=== PATIENT | male | born 1975 | race Caucasian/White ===

== ENCOUNTER → 2016-07-20 | Outpatient (CLI) | payer BC ==
[~2016-07-20] MED LIST: NAPROSYN500 MG PO; NORFLEX100 MG PO; TRAMADOL HCL50 MG PO
== END | disposition home or self-care (01) ==
LOC: US 15:00
DX: N50.3 Cyst of epididymis (principal); N43.3 Hydrocele, unspecified

== ENCOUNTER 2016-11-08 07:53 | Emergency (ER) | payer BC ==
[~2016-11-08] VITALS: Wt 70.3 kg
== END 2016-11-08 10:14 | disposition home or self-care (01) ==
LOC: ED 07:53
DX: M54.6 Pain in thoracic spine (principal); F17.200 Nicotine dependence, unspecified, uncomplicated

== ENCOUNTER 2022-05-17 19:08 | Emergency (ER) | payer BC, OTHER ==
[~2022-05-17] VITALS: Ht 182.8 cm; Wt 77.6 kg
[2022-05-17] MEDS ORDERED: PREDNISONE50 MG PO (20:04)
== END 2022-05-17 20:13 | disposition home or self-care (01) ==
LOC: ED 19:08
DX: R21 Rash and other nonspecific skin eruption (principal)

== ENCOUNTER 2023-02-19 19:11 | Emergency (ER) | payer BC, OTHER ==
[~2023-02-19] VITALS: Ht 182.8 cm; Wt 73.5 kg
[~2023-02-19 19:11] MED LIST changes: +PREDNISONE50 MG PO
[2023-02-19] MEDS ORDERED: FAMOTIDINE20 M1 PO (19:40)
[2023-02-19] MEDS ORDERED: FEXOFENADINE H180 M1 PO (19:41)
[2023-02-19] MEDS ORDERED: MEDROL DOSEPAK4 MG PO (21:27)
== END 2023-02-19 21:57 | disposition home or self-care (01) ==
LOC: ED 19:11
DX: T63.441A Toxic effect of venom of bees, accidental (unintentional), initial encounter (principal); L53.0 Toxic erythema; Z79.899 Other long term (current) drug therapy; Z98.890 Other specified postprocedural states; Y92.89 Other specified places as the place of occurrence of the external cause

== ENCOUNTER 2024-06-29 17:19 | Emergency (ER) | payer BC ==
[~2024-06-29] VITALS: Ht 193 cm; Wt 81.6 kg
[~2024-06-29 17:19] MED LIST changes: +FAMOTIDINE20 M1 PO; +FEXOFENADINE H180 M1 PO; +MEDROL DOSEPAK4 MG PO
[2024-06-29] MEDS ORDERED: SODIUM CHLORIDE 0.9% 1,000 ML IV ONE (18:00)
[2024-06-29] MEDS ORDERED: Pantoprazole Sodium 40 MG VIAL IV ONE (18:00)
[2024-06-29 18:21] LABS: HEMATOCRIT 47.4 % (42.0-52.0); MEAN CELL VOLUME 95.2 fl (80.0-94.0); MEAN CORPUSCULAR HGB 31.3 pg (27.0-31.0); MEAN CORPUSCULAR HGB CONC 32.9 g/dl (33.0-37.0); MEAN PLATELET VOLUME 8.6 fl (9.6-12.3); PLATELET COUNT AUTOMATED 419 10*3/uL (130-400); RED BLOOD COUNT 4.98 10*6/uL (4.50-5.90); WHITE BLOOD COUNT 14.3 10*3/uL (4.8-10.8)
[2024-06-29 18:22] LABS: MANUAL DIFF REFLEX YES
[2024-06-29 18:41] LABS: BURR CELLS FEW; PLATELET SUFFICIENCY HIGH (NORMAL); TARGET CELLS FEW; TOTAL CELLS COUNTED 100 #CELLS; TOXIC GRANULATION SLIGHT
[2024-06-29 18:45] LABS: ALKALINE PHOSPHATASE 54 U/L (46-116); BUN 17 mg/dl (9-23); CHLORIDE 102 mmol/L (98-107); LIPASE 36 U/L (12-53); POTASSIUM 3.9 mmol/L (3.4-5.1); SGPT/ALT 33 U/L (5-49); TOTAL PROTEIN 7.3 gm/dL (6.0-8.0)
[2024-06-29] MEDS ORDERED: IOHEXOL 300 MG/ML 100 ML VIAL IV ONE (19:05)
[2024-06-29] MEDS ORDERED: IOHEXOL 300 MG/ML 100 ML VIAL ONE (19:23)
[2024-06-29] MEDS ORDERED: OMEPRAZOLE40 MG PO (20:53)
[2024-06-29] MEDS ORDERED: Dicyclomine Hydrochloride 20 MG/10 ML OSYR PO STA (20:54)
[2024-06-29] MEDS ORDERED: MG-AL HYDROXIDE/SIMETICONE 30 ML UDC PO STA (20:54)
[2024-06-29] MEDS ORDERED: Lidocaine Hydrochloride 15 ML UDC PO STA (20:54)
== END 2024-06-29 21:20 | disposition home or self-care (01) ==
LOC: ED 17:19
PROVIDERS: Nurse Practitioner Family
DX: K20.90 Esophagitis, unspecified without bleeding (principal); I10 Essential (primary) hypertension; K92.0 Hematemesis; Z98.890 Other specified postprocedural states